=== PATIENT | female | born 1990 | race Caucasian/White ===

== ENCOUNTER 2020-10-24 21:14 | Emergency (ER) | payer SELFPAY ==
[2020-10-24] MEDS ORDERED: Ketorolac Tromethamine 30 MG/ML VIAL ONE (22:16)
== END 2020-10-24 23:17 | disposition home or self-care (01) ==
LOC: ERS 21:14
DX: M25.562 Pain in left knee (principal)
CPT/HCPCS: 96372; J1885

== ENCOUNTER 2021-08-30 05:29 | Emergency (ER) | payer SELFPAY ==
[2021-08-30] MEDS ORDERED: Acetaminophen 500 MG TAB ONE (05:57)
[2021-08-30] MEDS ORDERED: Xylocaine 1% w/ Epi 1:100K 10 ML VIAL ONE (06:37)
== END 2021-08-30 07:42 | disposition home or self-care (01) ==
LOC: ERS 05:29
DX: L02.413 Cutaneous abscess of right upper limb (principal); G43.909 Migraine, unspecified, not intractable, without status migrainosus; F17.290 Nicotine dependence, other tobacco product, uncomplicated
CPT/HCPCS: 10060